=== PATIENT | female | born 1975 | race Caucasian/White ===

== ENCOUNTER 2017-01-31 23:57 | Emergency (ER) | payer OTHER ==
[2017-02-01] MEDS ORDERED: ONDANSETRON ODT 4 MG TABLET TL STA (01:42)
[2017-02-01] MEDS ORDERED: HYDROmorphone 1 MG/ML SYRINGE IM STA ×2 (01:42→02:38)
[2017-02-01] MEDS ORDERED: ONDANSETRON ODT 4 MG TABLET ONE (02:03)
[2017-02-01] MEDS ORDERED: HYDROmorphone 1 MG/ML SYRINGE ONE ×2 (02:03→02:35)
--- NOTE | 2017-02-01 02:10 | XRAY Preliminary Report ---
Exam: XR Knee 4 View RT IMPRESSION: Comminuted medial tibial plateau fracture. [facility] SITE ID: [id number]
--- NOTE | 2017-02-01 02:12 | XRAY Report ---
EXAM: RIGHT/LEFT KNEE RADIOGRAPHY EXAM DATE: 02/01/2017 01:04 AM. CLINICAL HISTORY: Medial joint pain after stepping in a hole. COMPARISON: None. TECHNIQUE: 3 views. FINDINGS: Bones: There are fracture lines involving medial tibial plateau. There is a mildly displaced tibial f ragment anteriorly. Joints: There is a large effusion. Soft Tissues: Normal. No soft tissue swelling. IMPRESSION: Comminuted medial tibial plateau fracture. [facility] Referring Provider Line: [phone] SITE ID: [id number]
[2017-02-01] MEDS ORDERED: KETOROLAC 60 MG/2 ML VIAL ONE (02:35)
[2017-02-01] MEDS ORDERED: KETOROLAC 60 MG/2 ML VIAL IM STA (02:38)
[2017-02-01] MEDS ORDERED: HYDROcod/ACET 5/325 Prepack 6 PO ONE ×2 (03:00→03:04)
--- NOTE | 2017-02-01 03:00 | ED Physician Documentation ---
PD HPI LOWER EXT INJURY - Stated complaint Stated Complaint: R LEG PAIN - Chief complaint Chief Complaint: Trauma Ext - History obtained from History obtained from: Patient, Family - History of Present Illness PD HPI LOW EXT INJURY LOCATION: Right, Knee Type of injury: Fall, Twist Where injury occurred: Home Timing - onset: Today Timing - duration: Hours Timing - details: Abrupt onset, Still present Improved by: Rest, Immobilization Worsened by: Moving, Palpating Associated symptoms: Swelling. No: Weakness, Numbness, Tingling Contributing factors: No: Anticoagulated Similar symptoms before: Has not had sx before Recently seen: Not recently seen - Additional information Additional information: 41-year-old female with a prior history of ovarian cancer was digging a post hole today and this evening she thought it would be important to go outside and make certain that the hole was covered so that no one else stepped in it. She walked outside and stepped and she fell into the hole with her right leg and has severe pain and swelling of the knee. She has most of the pain on the medial aspect of the knee. She is not able to bear weight on her leg. Review of Systems Constitutional: denies: Fever Eyes: denies: Decreased vision Ears: denies: Ear pain Nose: denies: Congestion Throat: denies: Sore throat Respiratory: denies: Dyspnea, Cough GI: denies: Abdominal Pain, Nausea, Vomiting : denies: Dysuria, Frequency Skin: denies: Rash Musculoskeletal: denies: Neck pain, Back pain Neurologic: denies: Generalized weakness, Focal weakness, Numbness PD PAST MEDICAL HISTORY - Past Medical History Cardiovascular: None Respiratory: None Neuro: None Endocrine/Autoimmune: HyPOthyroidism GI: None : Other HEENT: None Psych: Depression, Bipolar disorder Musculoskeletal: None Derm: None - Past Surgical History Past Surgical History: Yes General: Cholecystectomy, 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, Hysterectomy, Oophrectomy - Present Medications Home Medications: Ambulatory Orders Medication Instructions Recorded Confirmed Bupropion HCl [Wellbutrin Xl] 300 mg PO DAILY 12/22/12 02/01/17 Dextroamphetamine/Amphetamine 60 mg PO DAILY 12/22/12 02/01/17 [Adderall 20 mg Tablet] Levothyroxine Sodium [Levoxyl] 100 mcg PO DAILY 12/22/12 02/01/17 lamoTRIgine [LaMICtal] 150 mg PO DAILY 12/22/12 02/01/17 Biotin 1 tab PO DAILY 12/14/15 02/01/17 Hydrocodone/Acetaminophen 1 - 2 each PO Q6HR PRN #20 tablet 02/01/17 [Hydrocodon-Acetaminophn 10325] - Allergies Allergies/Adverse Reactions: Allergies Allergy/AdvReac Type Severity Reaction Status Date / Time Sulfa (Sulfonamide Allergy Unknown unknown Verified 02/01/17 00:03 Antibiotics) - Social History Does the pt smoke?: No Smoking Status: Never smoker Does the pt drink ETOH?: No Does the pt have substance abuse?: No - Immunizations Immunizations are current?: Yes - POLST Patient has POLST: No PD ED PE NORMAL - Vitals Vital signs reviewed: Yes (hypertensive ) - General General: Alert and oriented X 3, No acute distress, Well developed/nourished - HEENT HEENT: Atraumatic, PERRL - Respiratory Respiratory: No respiratory distress - Derm Derm: Normal color, Warm and dry, No rash - Extremities Extremities: Other (There is significant swelling and tenderness to the medial aspect of the right knee especially along the medial joint line. The ACL is stable, there does appear to be a joint effusion. Distal n/v is intact. ) - Neuro Neuro: No motor deficit, No sensory deficit - Psych Psych: Normal mood, Normal affect Results - Vitals Vitals: Vital Signs - 24 hr 02/01/17 02/01/17 02/01/17 00:03 01:17 02:19 Temperature 36.5 C 36.6 C 36.6 C Heart Rate 91 65 70 Respiratory 16 15 15 Rate Blood Pressure 150/92 H 155/94 H 127/55 L O2 Saturation 99 96 100 02/01/17 02:30 Temperature Heart Rate 73 Respiratory 16 Rate Blood Pressure 118/63 O2 Saturation 97 Oxygen O2 Source Room air - Rads (name of study) right knee Radiology: Prelim report reviewed (IMPRESSION: Comminuted medial tibial plateau fracture.), EMP read indepedently, See rad report Procedures - Splint (location) right knee Splint applied by: Tech Type of splint: Other (knee immobilizer) Other: No complications, Neurovascular intact, Good alignment, Other (walker at home). 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 ) ED course: 41-year-old female stepped into a hole has a medial tibial plateau fracture that is with some comminution. She has a large joint effusion and a lot of pain. She is administered Dilaudid IM and Zofran TL she does not have adequate pain relief with this and she is administered a second dose of Dilaudid and 60 mg of Toradol IM. With this she does have good pain relief and we are able to adjust the splint to get the knee into extension. Departure - Departure Disposition: 01 Home, Self Care Clinical Impression: Tibial plateau fracture, right Qualifiers: Encounter type: initial encounter Fracture type: closed Qualified Code(s): S82.141A - Displaced bicondylar fracture of right tibia, initial encounter for closed fracture Condition: Stable Instructions: ED Fx Knee Follow-Up: Amanedep Light MD [Primary Care Provider] - [facility] [Provider Group] Prescriptions: Hydrocodone/Acetaminophen [Hydrocodon-Acetaminophn 10-325] 1 - 2 each PO Q6HR PRN #20 tablet PRN Reason: Pain
[2017-02-01 03:11] VITALS: BP 122/64
== END 2017-02-01 03:23 | disposition home or self-care (01) ==
LOC: ED 23:57
DX: S82.141A Displaced bicondylar fracture of right tibia, initial encounter for closed fracture (principal); Z85.43 Personal history of malignant neoplasm of ovary; W19.XXXA Unspecified fall, initial encounter; X50.1XXA Overexertion from prolonged static or awkward postures, initial encounter
CPT/HCPCS: 73564; 96372; 99284; J1170; Q0162

== ENCOUNTER 2017-02-07 16:13 | Outpatient (CLI) | payer OTHER ==
--- NOTE | 2017-02-07 18:02 | CT Preliminary Report ---
Exam: CT Lower Extremity Right W/O IMPRESSION: Comminuted fracture the proximal tibia. [facility] The call report notification system was initiated by Dr. Nevaeh Barkley at 17:29 hrs on 02/07/17. The above findings were discussed with Dr Diez by Dr. Nevaeh Barkley at 18:01 hrs on 02/07/17. SITE ID: [id number]
--- NOTE | 2017-02-07 21:59 | CT Report ---
EXAM: RIGHT KNEE CT WITHOUT CONTRAST EXAM DATE: 02/07/2017 05:01 PM. CLINICAL HISTORY: Right knee pain after fall. Plateau fracture. COMPARISON: 02/01/2017. TECHNIQUE: Thin-section axial images were acquired of the knee without contrast. Post-processing: Cor onal and sagittal reformats. Other: None. In accordance with CT protocol optimization, one or more of the following dose reduction techniques w ere utilized for this exam: automated exposure control, adjustment of mA and/or KV based on patient s ize, or use of iterative reconstructive technique. FINDINGS: Bones: The patient has a comminuted fracture of the anterior portion of the tibial plateau. A depress ed segment of the cortical portion of the lateral tibial plateau measures 1.7 x 1.6 cm. Depression is up to 3 mm. There are also oblique fracture lines through the anterior portion of the medial tibial plateau. Fracture lines extend through the tibial spine region including the footplate of the ACL alt pranav the footplate is not displaced. Anterior tibial fracture fragment is displaced anteriorly by 4 mm. That fragment measures 1 cm. Joints: Mild osteophyte formation is in the medial compartment. A mild effusion is seen. Musculature: Normal. No fatty atrophy. Other: No Bakers cyst. No soft tissue swelling. IMPRESSION: Comminuted fracture the proximal tibia. [facility] The call report notification system was initiated by Dr. Nevaeh Barkley at 17:29 hrs on 02/07/17. The above findings were discussed with Dr Diez by Dr. Nevaeh Barkley at 18:01 hrs on 02/07/17. Referring Provider Line: [phone] SITE ID: [id number]
== END 2017-02-07 16:14 | disposition home or self-care (01) ==
LOC: DI 16:13
PROVIDERS: ATTEND Orthopaedic Surgery
DX: S82.141A Displaced bicondylar fracture of right tibia, initial encounter for closed fracture (principal)

== ENCOUNTER 2018-12-15 21:55 | Emergency (ER) | payer OTHER ==
--- NOTE | 2018-12-16 00:27 | ED Physician Documentation ---
PD HPI UPPER EXT INJURY - Stated complaint Stated Complaint: E THUMB INJ - History obtained from History obtained from: Patient - History of Present Illness Location: Right, Finger (thumb) Type of injury: Blunt / blow Where injury occurred: Home Timing - onset: Yesterday Timing - duration: Days (1) Timing - details: Abrupt onset, Still present Improved by: Rest, Immobilization Worsened by: Moving, Palpating Associated symptoms: Swelling. No: Weakness, Numbness Contributing factors: No: Anticoagulated Similar symptoms before: Has not had sx before Recently seen: Not recently seen - Additonal information Additional information: 43 y/o female dropped an auto finesse on her hand in her garage yesterday and has persistent pain and a "catching" with ROM. She has decreased ROM and swelling. Review of Systems Constitutional: denies: Fever Eyes: denies: Decreased vision Ears: denies: Ear pain Nose: denies: Congestion Throat: denies: Sore throat Respiratory: denies: Dyspnea, Cough GI: denies: Vomiting Skin: denies: Rash Musculoskeletal: reports: Extremity pain, Joint pain, Extremity swelling. 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, Hysterectomy, Oophrectomy - Present Medications Home Medications: Ambulatory Orders Medication Instructions Recorded Confirmed Bupropion HCl [Wellbutrin Xl] 300 mg PO DAILY 12/22/12 02/01/17 Dextroamphetamine/Amphetamine 60 mg PO DAILY 12/22/12 02/01/17 [Adderall 20 mg Tablet] Levothyroxine Sodium [Levoxyl] 100 mcg PO DAILY 12/22/12 02/01/17 lamoTRIgine [LaMICtal] 150 mg PO DAILY 12/22/12 02/01/17 Biotin 1 tab PO DAILY 12/14/15 02/01/17 Hydrocodone/Acetaminophen 1 - 2 each PO Q6HR PRN #20 tablet 02/01/17 [Hydrocodon-Acetaminophn 10-325] - Allergies Allergies/Adverse Reactions: Allergies Allergy/AdvReac Type Severity Reaction Status Date / Time Sulfa (Sulfonamide Allergy Unknown unknown Verified 02/01/17 00:03 Antibiotics) - Social History Does the pt smoke?: No Smoking Status: Never smoker Does the pt drink ETOH?: No Does the pt have substance abuse?: No - Immunizations Immunizations are current?: Yes - POLST Patient has POLST: No PD ED PE NORMAL - Vitals Vital signs reviewed: Yes - General General: Alert and oriented X 3, No acute distress, Well developed/nourished - HEENT HEENT: Atraumatic, PERRL, EOMI - Respiratory Respiratory: No respiratory distress - Derm Derm: Normal color, Warm and dry, No rash - Extremities Extremities: No deformity, Other (There is swelling and point tenderness to the right thumb over the MCP and IP joints distal n/v is intact. There is reduced ROM and the ligaments appear intact to testing. ) - Neuro Neuro: Alert and oriented X 3, medical examiner 2-12 intact, No motor deficit, No sensory deficit, Normal speech Eye Opening: Spontaneous Motor: Obeys Commands Verbal: Oriented GCS Score: 15 - Psych Psych: Normal mood, Normal affect Results - Vitals Vitals: Oxygen O2 Source Room air - Rads (name of study) thumb Radiology: Prelim report reviewed, EMP read indepedently, See rad report Procedures - Splint (location) right thumb Splint applied by: Tech Type of splint: Fiberglass, Thumb spica Other: Patient tolerated well, No complications, Neurovascular intact, Good alignment PD MEDICAL DECISION MAKING - ED course Complexity details: reviewed results, re-evaluated patient, considered differential, d/w patient ED course: 43 y/o female with a sprain of the right thumb is placed into a thumb spica and instructed to follow up with ortho. Departure - Departure Disposition: 01 Home, Self Care Clinical Impression: Sprain of right thumb Qualifiers: Encounter type: initial encounter Sprain of finger site: metacarpophalangeal joint Qualified Code(s): S63.641A - Sprain of metacarpophalangeal joint of right thumb, initial encounter Condition: Stable Instructions: ED Sprain Finger Follow-Up: Amandeep Light MD [Primary Care Provider] - Sidney Emanuel MD [Provider Admit Priv/Credential] -
[2018-12-16 01:32] VITALS: BP 129/71
--- NOTE | 2018-12-16 21:18 | XRAY Report ---
Reason: CRUSHING INJURY Procedure Date: 12/16/2018 Accession Number: [id number] / [id number] Procedure: XR - Finger(s) RT CPT Code: FULL RESULT: EXAM: RIGHT FIRST DIGIT RADIOGRAPHY EXAM DATE: 12/15/2018 11:12 PM. CLINICAL HISTORY: Crush injury COMPARISON: None. TECHNIQUE: 3 views. FINDINGS: Bones: Normal. No fracture or bone lesion. Joints: Normal. No subluxations. Soft Tissues: Normal. No soft tissue swelling. IMPRESSION: Normal digit radiography. [facility]
== END 2018-12-16 01:52 | disposition home or self-care (01) ==
LOC: ED 21:55
DX: S63.641A Sprain of metacarpophalangeal joint of right thumb, initial encounter (principal); W20.8XXA Other cause of strike by thrown, projected or falling object, initial encounter; Y92.008 Other place in unspecified non-institutional (private) residence as the place of occurrence of the external cause
CPT/HCPCS: 73140; 99282; 99283

== ENCOUNTER 2019-09-05 03:10 | Emergency (ER) | payer SELFPAY ==
[2019-09-05 03:33] LABS: BILIRUBIN,URINE NEGATIVE (NEGATIVE); GLUCOSE, URINE (UA) NEGATIVE (NEGATIVE); KETONES,URINE (UA) NEGATIVE (NEGATIVE); LEUKOCYTE ESTERASE, URINE NEGATIVE (NEGATIVE); NITRITE,URINE NEGATIVE (NEGATIVE); OCCULT BLOOD,URINE NEGATIVE (NEGATIVE); PH,URINE 6.5 PH (5.0-7.5); PROTEIN,URINE NEGATIVE (NEGATIVE); UROBILINOGEN,URINE 0.2 (NORMAL) E.U./dL (NORMAL)
[2019-09-05 03:35] LABS: CLARITY,URINE CLEAR (CLEAR)
--- NOTE | 2019-09-05 05:10 | ED Physician Documentation ---
PD HPI BACK PAIN - Stated complaint Stated Complaint: FEM /BK PX - Chief complaint Chief Complaint: Back Pain - History obtained from History obtained from: Patient - History of Present Illness Timing - onset: Enter time (21:00) Timing - details: Gradual onset Pain level now: 6 Location: Lower, Right, Left Quality: Pain Associated symptoms: No: Fever Improves with: Nothing Worsened by: Palpation Similar symptoms before: Has not had sx before Recently seen: Not recently seen - Additional information Additional information: c/o urinary urgency that started 9 PM with low back pain, across lower back. She subsequently developed increasing sensation of bladder fullness and "heaviness" (per patient). Review of Systems Constitutional: denies: Fever, Chills, Sweats Cardiac: reports: Reviewed and negative Respiratory: reports: Reviewed and negative GI: reports: Abdominal Pain. 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, Oophrectomy - Present Medications Home Medications: Ambulatory Orders Medication Instructions Recorded Confirmed Bupropion HCl [Wellbutrin Xl] 300 mg PO DAILY 12/22/12 02/01/17 Dextroamphetamine/Amphetamine 60 mg PO DAILY 12/22/12 02/01/17 [Adderall 20 mg Tablet] Levothyroxine Sodium [Levoxyl] 100 mcg PO DAILY 12/22/12 02/01/17 lamoTRIgine [LaMICtal] 150 mg PO DAILY 12/22/12 02/01/17 Biotin 1 tab PO DAILY 12/14/15 02/01/17 Hydrocodone/Acetaminophen 1 - 2 each PO Q6HR PRN #20 tablet 02/01/17 [Hydrocodon-Acetaminophn 10-325] Ciprofloxacin HCl [Cipro] 500 mg PO BID #14 tablet 09/05/19 Hydrocodone/Acetaminophen 1 - 2 each PO Q6HR PRN #14 tablet 09/05/19 [Hydrocodone-Acetamin 5-325 mg] Metronidazole [Flagyl] 500 mg PO Q8HR #21 tablet 09/05/19 - Allergies Allergies/Adverse Reactions: Allergies Allergy/AdvReac Type Severity Reaction Status Date / Time Sulfa (Sulfonamide Allergy Unknown unknown Verified 09/05/19 03:27 Antibiotics) - Social History Does the pt smoke?: No Smoking Status: Never smoker Does the pt drink ETOH?: No Does the pt have substance abuse?: No - Immunizations Immunizations are current?: Yes - POLST Patient has POLST: No PD ED PE NORMAL - Vitals Vital signs reviewed: Yes - General General: Alert and oriented X 3, No acute distress, Well developed/nourished - Cardiac Cardiac: RRR, No murmur - Respiratory Respiratory: No respiratory distress - Abdomen Abdomen: Soft, Non distended - Back Back: No CVA TTP - Derm Derm: Normal color, Warm and dry PD ED PE EXPANDED - Abdomen Abdomen: Tender to palpation, LLQ. No: Rebound, Guarding Results - Vitals Vitals: Vital Signs - 24 hr 09/05/19 09/05/19 09/05/19 03:25 05:02 07:00 Temperature 36.9 C 36.7 C Heart Rate 86 88 77 Respiratory 18 18 18 Rate Blood Pressure 129/86 H 136/83 H 109/61 O2 Saturation 99 96 96 Oxygen O2 Source Room air - Labs Labs: Laboratory Tests 09/05/19 09/05/19 09/05/19 03:20 05:45 05:45 WBC 11.4 H RBC 4.29 Hgb 12.8 Hct 38.2 MCV 89.0 MCH 29.8 MCHC 33.5 RDW 12.5 Plt Count 196 MPV 9.7 Neut # (Auto) 8.2 H Lymph # (Auto) 1.9 Ware # (Auto) 1.0 Eos # (Auto) 0.1 Baso # (Auto) 0.1 Absolute Nucleated RBC 0.00 Nucleated RBC % 0.0 Sodium 139 Potassium 4.0 Chloride 104 Carbon Dioxide 24 Anion Gap 11.0 BUN 14 Creatinine 0.7 Estimated GFR (MDRD) 91 Glucose 105 H Calcium 9.0 Total Bilirubin 1.1 H AST 17 ALT 24 Alkaline Phosphatase 67 Total Protein 7.1 Albumin 4.2 Globulin 2.9 Albumin/Globulin Ratio 1.4 Lipase 42 Urine Color YELLOW Urine Clarity CLEAR Urine pH 6.5 Ur Specific [place] <=1.005 Urine Protein NEGATIVE Urine Glucose (UA) NEGATIVE Urine Ketones NEGATIVE Urine Occult Blood NEGATIVE Urine Nitrite NEGATIVE Urine Bilirubin NEGATIVE Urine Urobilinogen 0.2 (NORMAL) Ur Leukocyte Esterase NEGATIVE Ur Microscopic Review NOT INDICATED Urine Culture Comments NOT INDICATED - Rads (name of study) CT A/P Radiology: Prelim report reviewed, See rad report PD MEDICAL DECISION MAKING - ED course Complexity details: reviewed results, re-evaluated patient, considered differential, d/w patient Departure - Departure Disposition: 01 Home, Self Care Clinical Impression: Diverticulitis Condition: Good Instructions: ED Diverticulitis Follow-Up: Amandeep Light MD [Primary Care Provider] - (3-5 days) Prescriptions: Hydrocodone/Acetaminophen [Hydrocodone-Acetamin 5-325 mg] 1 - 2 each PO Q6HR PRN #14 tablet PRN Reason: Pain Metronidazole [Flagyl] 500 mg PO Q8HR #21 tablet Ciprofloxacin HCl [Cipro] 500 mg PO BID #14 tablet Discharge Date/Time: 09/05/19 08:22
[2019-09-05] MEDS ORDERED: KETOROLAC 30 MG/ML VIAL IVP STA (05:34)
[2019-09-05] MEDS ORDERED: MORPHINE 2 MG/ML CARPUJECT IVP STA ×2 (05:34→07:50)
[2019-09-05 05:54] LABS: BASOPHILS # (AUTO) 0.1 10^3/uL (0.0-0.1); BASOPHILS % (AUTO) 0.4 %; EOSINOPHILS # (AUTO) 0.1 10^3/uL (0.0-0.7); EOSINOPHILS % (AUTO) 1.1 %; HGB - HEMOGLOBIN 12.8 g/dL (12.0-16.0); LYMPHOCYTES # (AUTO) 1.9 10^3/uL (1.5-3.5); LYMPHOCYTES % (AUTO) 17.1 %; MEAN CORPUSCULAR HEMOGLOBIN 29.8 pg (27.0-31.0); MEAN CORPUSCULAR HGB CONC 33.5 g/dL (32.0-36.0); MEAN PLATELET VOLUME 9.7 fL (7.9-10.8); MONOCYTES % (AUTO) 8.9 %; NEUTROPHILS # (AUTO) 8.2 10^3/uL (1.5-6.6); PLT - PLATELET COUNT 196 10^3/uL (130-450); RED BLOOD COUNT 4.29 10^6/uL (4.20-5.40); RED CELL DISTRIBUTION WIDTH 12.5 % (12.0-15.0); WHITE BLOOD COUNT 11.4 x10^3/uL (4.8-10.8)
[2019-09-05 06:08] LABS: ALBUMIN 4.2 g/dL (3.2-5.5); ALBUMIN/GLOBULIN RATIO 1.4 (1.0-2.2); BILIRUBIN,TOTAL 1.1 mg/dL (0.2-1.0); CREATININE 0.7 mg/dL (0.4-1.0); TOTAL PROTEIN 7.1 g/dL (6.7-8.2)
[2019-09-05] MEDS ORDERED: IOVERSOL 320 100 ML VIAL IVP ONE ×2 (06:53→07:16)
--- NOTE | 2019-09-05 07:25 | CT Report ---
Reason: abd. pain Procedure Date: 09/05/2019 Accession Number: [id number] / [id number] Procedure: CT - Abdomen/Pelvis W CPT Code: Final Report FULL RESULT: EXAM: CT ABDOMEN AND PELVIS EXAM DATE: 09/05/2019 07:15 AM. CLINICAL HISTORY: Abd. pain. COMPARISONS: None. TECHNIQUE: Routine helical CT imaging was performed through the abdomen and pelvis. IV contrast: 100 mL Optiray 320. Enteric contrast: No. Reconstructions: Coronal and sagittal. In accordance with CT protocol optimization, one or more of the following dose reduction techniques were utilized for this exam: automated exposure control, adjustment of mA and/or KV based on patient size, or use of iterative reconstructive technique. FINDINGS: Lung Bases: Unremarkable. Liver: Normal. No masses. Gallbladder/Bile Ducts: Postoperative changes of cholecystectomy. No biliary dilatation. Spleen: Normal. Pancreas: Normal. Adrenal Glands: Normal. Kidneys: Normal. No masses or hydronephrosis. Peritoneal Cavity/Bowel: There is inflammation and wall thickening of the mid sigmoid colon, with multiple diverticula present, compatible with diverticulitis. No abscess or perforation. No small bowel obstruction. No adenopathy. Pelvic Organs: Postoperative changes of hysterectomy. Trace free fluid. No pelvic adenopathy. Vasculature: Atherosclerotic calcifications. Bones: No significant abnormality. Other: None. IMPRESSION: Inflammation and wall thickening of the mid sigmoid colon, with multiple diverticula present, compatible with uncomplicated diverticulitis. [facility]
[2019-09-05 07:35] VITALS: BP 109/61
[2019-09-05] MEDS ORDERED: metroNIDAZOLE 250 MG TABLET PO STA (07:48)
[2019-09-05] MEDS ORDERED: CIPROFLOXACIN 250 MG TABLET PO STA (07:49)
== END 2019-09-05 08:22 | disposition home or self-care (01) ==
LOC: ED 03:10
DX: K57.32 Diverticulitis of large intestine without perforation or abscess without bleeding (principal)
CPT/HCPCS: 36415; 74177; 80053; 81003; 83690; 85025; 96374; 96375; 96376; 99284; A9270; Q9967; 81001; 87086